=== PATIENT | male | born 1985 | race Two or more races ===

== ENCOUNTER 2017-01-07 22:09 | Emergency (ER) | payer SELFPAY ==
[~2017-01-07] VITALS: Ht 182.9 cm; Wt 104.3 kg
--- NOTE | 2017-01-07 23:18 | NUR ---
PT STATES HE DOESNT WANT TO BE TRIAGED AT THE MOMENT BECAUSE HE IS NOT SURE IF HE WANTS TO WAIT PT STATES HE WILL LET US KNOW WHAT HE DECIDES
--- NOTE | 2017-01-07 23:31 | NUR ---
Jason cool in ED - 01/07/17 at 2332 by LAURA PT DECIDED TO LEAVE
[2017-01-07 23:54] VITALS: BP 138/71
--- NOTE | 2017-01-08 00:39 | NUR ---
verbal insrtuction given to pt due to exit care down. verbal instruction was also provided by ER LAURA Ness. pt verbaliz eunderstanding.
== END 2017-01-08 00:40 | disposition home or self-care (01) ==
LOC: ER 22:15
DX: J06.9 Acute upper respiratory infection, unspecified (principal)
CPT/HCPCS: 99283; A4606; Z7610

== ENCOUNTER 2017-06-05 04:15 | Emergency (ER) | payer OTHER ==
[~2017-06-05] VITALS: Ht 172.7 cm; Wt 81.6 kg
[2017-06-05 04:15] VITALS: BP 122/68
[2017-06-05] MEDS ORDERED: AMOX/CLAVULANATE 875 MG TABLET PO ONE (05:30)
[2017-06-05] MEDS ORDERED: AMOX/CLAVULANATE 875 MG TABLET ONE (05:31)
--- NOTE | 2017-06-05 05:37 | NUR ---
Patient discharged to home in stable condition. Written and verbal after care instructions given. Patient verbalizes understanding of instruction. VSS upon discharge with lapd.
== END 2017-06-05 05:38 | disposition home or self-care (01) ==
LOC: ER 04:17
DX: S02.2XXA Fracture of nasal bones, initial encounter for closed fracture (principal); S09.8XXA Other specified injuries of head, initial encounter; W20.8XXA Other cause of strike by thrown, projected or falling object, initial encounter; Y93.89 Activity, other specified; Y92.89 Other specified places as the place of occurrence of the external cause; Y99.8 Other external cause status
CPT/HCPCS: 70450; 70486; 99284; A4606; Z7610

== ENCOUNTER 2021-12-02 15:54 | Emergency (ER) | payer SELFPAY ==
[~2021-12-02] VITALS: Ht 182.9 cm; Wt 95.3 kg
[2021-12-02 16:09] VITALS: BP 116/88
[2021-12-02] MEDS ORDERED: LIDOCAINE 1%-EPI 1:100,000 20 ML VIAL TP ONE (16:30)
[2021-12-02] MEDS ORDERED: TDAP [DIPH/PERTUSSIS/TET] 0.5 ML VIAL IM ONE ×2 (16:30→16:41)
[2021-12-02] MEDS ORDERED: HYDR-4303 PO (17:13)
[2021-12-02] MEDS ORDERED: NAPR-1009 PO (17:13)
--- NOTE | 2021-12-02 17:16 | NUR ---
CALLED RA 39 CELSO WILL CALL US BACK.
--- NOTE | 2021-12-02 17:34 | NUR ---
For discharge pt very impatient and does NOT want to wait for instructions- Verbal ACI given
== END 2021-12-02 17:34 | disposition home or self-care (01) ==
LOC: ER 15:59
DX: S51.812A Laceration without foreign body of left forearm, initial encounter (principal); F17.200 Nicotine dependence, unspecified, uncomplicated; W26.0XXA Contact with knife, initial encounter; Y93.89 Activity, other specified; Y92.89 Other specified places as the place of occurrence of the external cause; Y99.8 Other external cause status
CPT/HCPCS: 99283; 99406; 12002; 90471; 90715; L3763

== ENCOUNTER 2021-12-17 16:15 | Emergency (ER) | payer SELFPAY ==
[~2021-12-17] VITALS: Ht 182.9 cm; Wt 99.8 kg
[~2021-12-17 16:15] MED LIST: HYDR-4303 PO; NAPR-1009 PO
[2021-12-17 16:29] VITALS: BP 137/86
--- NOTE | 2021-12-17 16:56 | NUR ---
seen by julissa gotti. sutures removed. tolerated procedure well. d/c in stable condition.
== END 2021-12-17 16:58 | disposition home or self-care (01) ==
LOC: ER 16:41
DX: S51.812D Laceration without foreign body of left forearm, subsequent encounter (principal); F17.200 Nicotine dependence, unspecified, uncomplicated; Z79.899 Other long term (current) drug therapy; X58.XXXD Exposure to other specified factors, subsequent encounter

== ENCOUNTER 2022-06-22 17:07 | Emergency (ER) | payer SELFPAY ==
[~2022-06-22] VITALS: Ht 182.9 cm; Wt 99.8 kg
--- NOTE | 2022-06-22 17:50 | NUR ---
EKG DONE AND NOTED BY DR THOMPSON, BACK TO [facility] TO WAIT FOR ER BED
--- NOTE | 2022-06-22 19:01 | NUR ---
PT ELOPED THE ER
[2022-06-22 19:04] VITALS: BP 132/80
== END 2022-06-22 19:05 | disposition left against medical advice (07) ==
LOC: ER 17:20
DX: R07.9 Chest pain, unspecified (principal); Z53.21 Procedure and treatment not carried out due to patient leaving prior to being seen by health care provider

== ENCOUNTER 2023-07-04 20:31 | Emergency (ER) | payer SELFPAY ==
[~2023-07-04] VITALS: Ht 182.9 cm; Wt 99.8 kg
[2023-07-04 21:42] VITALS: BP 154/90; TEMP 99
[2023-07-04] MEDS ORDERED: AMOX500C2 PO (21:57)
[2023-07-04] MEDS ORDERED: AMOXICILLIN TRIHYDRATE 250 MG CAPSULE ONE (21:59)
[2023-07-04] MEDS ORDERED: AMOXICILLIN TRIHYDRATE 500 MG CAPSULE PO ONE (22:00)
[2023-07-04 22:06] VITALS: O2SAT 99
== END 2023-07-04 22:06 | disposition home or self-care (01) ==
LOC: ER 20:33
DX: H66.93 Otitis media, unspecified, bilateral (principal); J02.9 Acute pharyngitis, unspecified; F17.200 Nicotine dependence, unspecified, uncomplicated; Z79.899 Other long term (current) drug therapy

== ENCOUNTER 2023-07-12 16:29 | Emergency (ER) | payer SELFPAY ==
[~2023-07-12] VITALS: Ht 182.9 cm; Wt 99.8 kg
[~2023-07-12 16:29] MED LIST changes: +AMOX500C2 PO
[2023-07-12] MEDS ORDERED: CIPR7.5D9 LEFT EAR (16:58)
[2023-07-12 17:05] VITALS: BP 144/78; TEMP 98.6; O2SAT 100
== END 2023-07-12 17:06 | disposition home or self-care (01) ==
LOC: ER 16:34
DX: H66.92 Otitis media, unspecified, left ear (principal); H60.92 Unspecified otitis externa, left ear; H92.02 Otalgia, left ear

== ENCOUNTER 2024-01-15 10:00 | Emergency (ER) | payer SELFPAY ==
[~2024-01-15] VITALS: Ht 182.9 cm; Wt 100.7 kg
[~2024-01-15 10:00] MED LIST changes: +CIPR7.5D9 LEFT EAR
[2024-01-15 10:33] LABS: BASOPHILS % (AUTO) 0.3 % (0.0-2.0); EOSINOPHILS # (AUTO) 0.3 K/uL (0.0-0.7); EOSINOPHILS % (AUTO) 1.8 % (0.0-6.0); HEMATOCRIT 36 % (39-51); HEMOGLOBIN 11.6 g/dL (13.5-17.5); LYMPHOCYTES % (AUTO) 11.6 % (20.0-44.0); MEAN CORPUSCULAR HEMOGLOBIN 19 PG (26.0-33.0); MEAN CORPUSCULAR HGB CONC 32 g/dl (31.0-36.0); MEAN CORPUSCULAR VOLUME 60 fL (80-96); MONOCYTES % (AUTO) 6.1 % (2.0-12.0); NEUTROPHILS # (AUTO) 13.6 K/uL (1.8-8.9); NEUTROPHILS % (AUTO) 80.2 % (43.0-81.0); PLATELET COUNT (AUTO) 219 K/uL (150-450); RED BLOOD CELL COUNT(AUTO) 6.05 MIL/uL (4.5-6.0); RED CELL DISTRIBUTION WIDTH 16.3 % (11.5-15.0); WHITE BLOOD COUNT (AUTO) 16.9 K/uL (4.3-11.0)
[2024-01-15 10:43] LABS: CREATININE 0.7 mg/dL (0.6-1.3); POTASSIUM 3.9 mmol/L (3.5-5.1)
[2024-01-15 10:49] LABS: ALBUMIN 3.6 g/dL (3.4-5.0); BILIRUBIN,DIRECT 0.2 mg/dL (0.0-0.2); BILIRUBIN,TOTAL 0.7 mg/dL (0.2-1.0); TOTAL PROTEIN, SERUM 7.3 g/dL (6.4-8.2)
[2024-01-15 11:01] LABS: APPEARANCE,URINE CLEAR (CLEAR); BILIRUBIN,URINE NEGATIVE (NEGATIVE); BLOOD, URINE NEGATIVE Ery/uL (NEGATIVE); COLOR,URINE YELLOW (YELLOW); KETONES,URINE NEGATIVE (NEGATIVE); LEUKOCYTE ESTERASE ,URINE NEGATIVE (NEGATIVE); NITRITE, URINE NEGATIVE (NEGATIVE); PROTEIN,URINE TRACE mg/dl (NEGATIVE); UGLUCOSE NEGATIVE (NEGATIVE); UROBILINOGEN,URINE 0.2 EU/dL (0.2)
[2024-01-15] MEDS ORDERED: KETOROLAC TROMETHAMINE 15 MG/ML VIAL ONE (11:10)
[2024-01-15] MEDS ORDERED: PANTOPRAZOLE 40 MG VIAL ONE (11:11)
[2024-01-15] MEDS ORDERED: ONDANSETRON HCL/PF 4 MG/2 ML VIAL ONE (11:11)
[2024-01-15] MEDS ORDERED: MAG HYDROX/AL HYDROX/SIMETH 30 ML UDC ONE (11:11)
[2024-01-15 11:13] LABS: ADD URINE CULTURE NO; BACTERIA,URINE None seen /HPF (None Seen); MUCUS,URINE Few /LPF (None Seen); RBC,URINE NONE SEEN /HPF (0-2); SQUAMOUS EPITHELIAL CELL,UR None Seen /HPF (None Seen); WBC,URINE NONE SEEN /HPF (0-3)
[2024-01-15] MEDS: ONDANSETRON HCL/PF 4 MG/2 ML VIAL IVP ONE (11:15)
[2024-01-15] MEDS: KETOROLAC TROMETHAMINE 15 MG/ML VIAL IV ONE (11:20)
[2024-01-15] MEDS: MAG HYDROX/AL HYDROX/SIMETH 30 ML UDC PO ONE (11:23)
[2024-01-15] MEDS: PANTOPRAZOLE 40 MG VIAL IV ONE (11:25)
[2024-01-15] MEDS ORDERED: KETO10TA2 PO (12:26)
[2024-01-15] MEDS ORDERED: PANT20TA2 PO (12:26)
[2024-01-15] MEDS ORDERED: ONDA4TAB11 PO (12:26)
[2024-01-15 12:37] VITALS: BP 140/86; TEMP 98.8; O2SAT 96
== END 2024-01-15 12:37 | disposition home or self-care (01) ==
LOC: ER 10:07
DX: K29.70 Gastritis, unspecified, without bleeding (principal); A05.9 Bacterial foodborne intoxication, unspecified; R11.2 Nausea with vomiting, unspecified; F19.10 Other psychoactive substance abuse, uncomplicated; F17.200 Nicotine dependence, unspecified, uncomplicated; Z79.899 Other long term (current) drug therapy
CPT/HCPCS: 99284; 96374; 96375; 85025; 80048; 83690; 80076; 81001; 36415; J2405; J2470; J1885

== ENCOUNTER 2024-03-16 04:40 | Emergency (ER) | payer SELFPAY ==
[~2024-03-16 04:40] MED LIST changes: +KETO10TA2 PO; +ONDA4TAB11 PO; +PANT20TA2 PO
== END 2024-03-16 05:40 | disposition left against medical advice (07) ==
LOC: ER 04:42
DX: S61.419A Laceration without foreign body of unspecified hand, initial encounter (principal); Z53.21 Procedure and treatment not carried out due to patient leaving prior to being seen by health care provider; X58.XXXA Exposure to other specified factors, initial encounter; Y93.89 Activity, other specified; Y92.89 Other specified places as the place of occurrence of the external cause; Y99.8 Other external cause status

== ENCOUNTER 2024-03-16 05:47 | Emergency (ER) | payer SELFPAY ==
[~2024-03-16] VITALS: Ht 182.9 cm; Wt 90.7 kg
[2024-03-16 07:09] VITALS: BP 144/88; TEMP 98; O2SAT 99
== END 2024-03-16 07:10 | disposition left against medical advice (07) ==
LOC: ER 05:54
DX: S61.412A Laceration without foreign body of left hand, initial encounter (principal); F17.200 Nicotine dependence, unspecified, uncomplicated; Z79.899 Other long term (current) drug therapy; W18.39XA Other fall on same level, initial encounter; Y93.89 Activity, other specified; Y92.89 Other specified places as the place of occurrence of the external cause; Y99.8 Other external cause status